=== PATIENT | female | born 1980 | race Caucasian/White ===

== ENCOUNTER 2018-03-16 06:11 | Emergency (ER) | payer MEDICARE, MEDICAID ==
[2018-03-16 06:18] VITALS: BP 132/75
[2018-03-16] MEDS ORDERED: KETOROLAC TROMETHAMINE 60 MG/2 ML SDV IM ONE (07:39)
--- NOTE | 2018-03-16 07:57 | RADIOLOGY REPORT (SQ) ---
EXAM DESCRIPTION: XR SHOULDER 2 OR MORE VIEWS COMPLETED DATE/TME: 03/16/2018 07:38 CLINICAL HISTORY: 38 years, Female, sudden onset left arm pain COMPARISON: None. FINDINGS: 3 views of the left shoulder. No acute fracture or dislocation. Normal osseous mineralization. No acute abnormalities of the left hemithorax. IMPRESSION: No acute fracture or dislocation. 2011 [employer]- All Rights Reserved
--- NOTE | 2018-03-16 08:00 | ER Document Report ---
ED General - General Chief Complaint: Arm Pain Stated Complaint: ARM PAIN Time Seen by Provider: 03/16/18 07:13 Mode of Arrival: Ambulatory Information source: Patient, Friend TRAVEL OUTSIDE OF THE [place] IN LAST 30 DAYS: No - HPI Notes: 38-year-old female presents to the ED with complaints of left shoulder pain that started approximately x 1 day ago. Denies any trauma. Denies any numbness or tingling down bilateral upper extremities. Pain is 7 out of 10, worse with movement. Tried [id number] ibuprofen without relief. Worse with movement, better when she keeps them elevated. Denies any prior history of shoulder pain but does have a history of cervical disc issues. Is not being followed by a doctor at this time. Denies , last menstrual period was 8 days ago, has not been sexually active since then. Denies fevers, chills, chest pain,palpitations, shortness of breath, dyspnea, nausea, vomiting, diarrhea, abdominal pain, hematuria,blurred vision, double vision, loss of vision, speech changes, LH, dizziness, syncope, headaches, wheezing, ST, URI, neck pain, weakness, bowel or bladder dysfunction, saddle anesthesia, numbness or tingling in bilateral upper or lower extremities equally, muscle paralysis, weakness in bilateral upper or lower extremities equally or rash. Denies IV drug use. - Related Data Allergies/Adverse Reactions: morphine Allergy (Verified 03/16/18 06:15) Past Medical History - General Information source: Patient - Social History Smoking Status: Current Every Day Smoker Chew tobacco use (# tins/day): No Frequency of alcohol use: Rare Drug Abuse: None Family History: Reviewed & Not Pertinent Patient has suicidal ideation: No Patient has homicidal ideation: No Renal/ Medical History: Denies: Hx Peritoneal Dialysis Review of Systems - Review of Systems Constitutional: No symptoms reported EENT: No symptoms reported Cardiovascular: No symptoms reported Respiratory: No symptoms reported Gastrointestinal: No symptoms reported Genitourinary: No symptoms reported Female Genitourinary: No symptoms reported Musculoskeletal: See HPI Skin: No symptoms reported Hematologic/Lymphatic: No symptoms reported Neurological/Psychological: No symptoms reported Physical Exam - Vital signs Vitals: Temp Pulse Resp BP Pulse Ox 97.6 F 73 18 132/75 H 96 03/16/18 06:17 03/16/18 06:17 03/16/18 06:17 06/13/18 06:17 03/16/18 06:17 - Notes Notes: PHYSICAL EXAMINATION: GENERAL: Well-appearing, well-nourished and in no acute distress. HEAD: Atraumatic, normocephalic. EYES: Pupils equal round and reactive to light, extraocular movements intact, conjunctiva are normal. ENT: Nares patent, oropharynx clear without exudates. Moist mucous membranes. NECK: Normal range of motion, supple without lymphadenopathy LUNGS: Breath sounds clear to auscultation bilaterally and equal. No wheezes rales or rhonchi. HEART: Regular rate and rhythm without murmurs ABDOMEN: Soft, nontender, nondistended abdomen. No guarding, no rebound. No masses appreciated. Female : deferred Musculoskeletal: Normal range of motion, no pitting or edema. No cyanosis. Left shoulder pain with abduction and flexion at 80 degrees. no pain with supination, pronation, extension of left arm. 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 APROM in shoulder. DTR +2 in BUE equally. Noted crepitus with APROM in elbow. negative drop arm, neer sign, lopez test bilaterally. slightly positive impingement sign all on Left. No vascular compromise. Neck with full APROM, no cervical spinal tenderness. No tenderness over clavicles or step off noted bilaterally. Strength 5 out of 5 in bilateral upper extremities equally. NEUROLOGICAL: Cranial nerves grossly intact. Normal speech, normal gait. Normal sensory, motor exams PSYCH: Normal mood, normal affect. SKIN: Warm, Dry, normal turgor, no rashes or lesions noted. Course - Re-evaluation Re-evalutation: 03/16/18 08:37 Afebrile, vitals stable and in mild distress from shoulder pain. Patient holds disc bulging is being managed. 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 X-ray of left arm without any acute fracture dislocation. Advised patient to take muscle relaxer , do not drive, drink alcohol or operate heavy machinery while taking medication. Placed in sling. Follow-up with operating room specialist within 1 week. Apply heat 20 minutes on 20 minutes off several times a day. After performing a Medical Screening Examination, I estimate there is LOW risk for OPEN FRACTURE, COMPARTMENT SYNDROME, TENDON RUPTURE, ACUTE NEUROVASCULAR INJURY , or RETAINED FOREIGN BODY, thus I consider the discharge disposition reasonable. Also, there is no evidence or peritonitis, sepsis, or toxicity. I have reevaluated this patient multiple times and no significant life threatening changes are noted. The patient and I have discussed the diagnosis and risks, and we agree with discharging home with close follow-up with the understanding that symptoms and presentations can change. We also discussed returning to the Emergency Department immediately if new or worsening symptoms occur. We have discussed the symptoms which are most concerning (e.g., changing or worsening pain, fever, numbness, weakness, cool or painful digits) that necessitate immediate return. - Vital Signs Vital signs: Temp Pulse Resp BP Pulse Ox 97.6 F 73 18 132/75 H 96 03/16/18 06:17 03/16/18 06:17 03/16/18 06:17 03/16/18 06:17 03/16/18 06:17 Discharge - Discharge Clinical Impression: Left shoulder pain Qualifiers: Chronicity: acute Qualified Code(s): M25.512 - Pain in left shoulder Rotator cuff tendinitis Qualifiers: Laterality: left Qualified Code(s): M75.82 - Other shoulder lesions, left shoulder Condition: Stable Disposition: HOME, SELF-CARE Instructions: Exercise Program for the Shoulder ([facility]), Shoulder Injury ([facility]), Sling to be Used ([facility]), Temporary Sling ([facility]) Additional Instructions: Shoulder Injury You have injured your shoulder. This usually results from stretching or tearing of the tendons during trauma. Time and protection are required in order to heal properly. Many injuries are quite disabling, and should be taken seriously. Initial treatment includes cold packs and a sling to rest the shoulder. The physician has assessed the seriousness of your injury, and has outlined a treatment plan. Understand that this treatment may change, depending on how you progress. If a re-examination was recommended, it is important that you follow up as instructed. Some shoulder injuries (such as partial tear of the rotator cuff) are only suspected after you've failed to improve. Call us if there's severe pain, numbness, or loss of function. Follow-up with operating room specialist within 3 days, use sling as directed. Do not drive, drink alcohol or operate heavy machinery while taking Flexeril as it can cause sedation. Take all medication with food, do not take any other NSAIDs such as Aleve, ibuprofen or Motrin while taking naproxen. Apply heat 20 minutes on 20 minutes off several times a day. Take arm out of sling a few times a day to prevent contracture. X-ray was negative for any acute fracture or dislocation. You likely a rotator cuff tendinitis Prescriptions: Cyclobenzaprine HCl [Flexeril 10 mg Tablet] 10 mg PO TIDP PRN #9 tab PRN Reason: Naproxen 500 mg PO BID PRN #20 tablet PRN Reason: Referrals: KATHERIN ZULETA MD [ACTIVE STAFF] - Follow up in 3-5 days LULI MALCOLM MD [ACTIVE STAFF] - Follow up in 3-5 days
== END 2018-03-16 08:37 | disposition home or self-care (01) ==
LOC: ER 06:11
DX: M75.92 Shoulder lesion, unspecified, left shoulder (principal); M25.512 Pain in left shoulder; F17.200 Nicotine dependence, unspecified, uncomplicated; Z88.5 Allergy status to narcotic agent
CPT/HCPCS: 99283; 96372; 73030; J1885

== ENCOUNTER 2018-07-08 19:27 | Emergency (ER) | payer MEDICARE, MEDICAID ==
[2018-07-08] MEDS ORDERED: BUPIVACAINE HCL 0.5 % INJ/PF 30 ML SDV INJ ONE (21:05)
[2018-07-08] MEDS ORDERED: LIDOCAINE 1% INJ (10 MG/ML) 10 ML MDV INJ ONE (21:09)
[2018-07-08] MEDS ORDERED: HYDROCODONE/ACETAMINOPHEN 5-325 MG (6 TAB/ER DISP) PO PRN (21:10)
--- NOTE | 2018-07-08 21:16 | ER Document Report ---
ED Oral Problem - General Chief Complaint: Toothache Stated Complaint: TOOTHACHE Time Seen by Provider: 07/08/18 21:00 Information source: Patient Notes: Patient is a 38-year-old female comes emergency room with a acute exacerbation of her chronic dental problem. She has a current abscess on the left lower incisor. Part of the tooth is broken off and it is partially decayed as well. Patient states that she has Medicaid Medicare but she cannot find a dentist. States this is been going on for several months but it comes and goes but this time it is not gone. She is on tears as we did do her physical exam. Of offer patient a dental block and she has accepted. TRAVEL OUTSIDE OF THE [place] IN LAST 30 DAYS: No - HPI Patient complains to provider of: Swelling of jaw, Toothache Onset: Other - Chronic for the several months worse the past week worse the past 2 days. Onset: Gradual Quality of pain: Sharp, Throbbing Severity: Moderate Pain Level: 3 Context: Fractured tooth Swollen jaw/face: Mild Associated symptoms: Chills, Facial pain, Jaw pain, Toothache, White patches in mouth Worsened by: Cold Relieved by: Nothing Similar symptoms previously: Yes Recently seen / treated by doctor/dentist: No - Related Data Allergies/Adverse Reactions: morphine Allergy (Verified 03/16/18 06:15) Past Medical History - General Information source: Patient - Social History Smoking Status: Current Every Day Smoker Cigarette use (# per day): Yes - Half a pack a day Chew tobacco use (# tins/day): No Smoking Education Provided: Yes Frequency of alcohol use: Occasional Lives with: Family Family History: Reviewed & Not Pertinent Patient has suicidal ideation: No Patient has homicidal ideation: No Renal/ Medical History: Denies: Hx Peritoneal Dialysis Past Surgical History: Reports: Hx Hysterectomy Review of Systems - Review of Systems Constitutional: No symptoms reported EENT: Dental problem Cardiovascular: No symptoms reported Respiratory: No symptoms reported Gastrointestinal: No symptoms reported Genitourinary: No symptoms reported Female Genitourinary: No symptoms reported Musculoskeletal: No symptoms reported Skin: No symptoms reported Hematologic/Lymphatic: No symptoms reported Neurological/Psychological: No symptoms reported -: Yes All other systems reviewed and negative Physical Exam - Vital signs Vitals: Temp Pulse Resp BP Pulse Ox 98.9 F 67 18 124/75 98 07/08/18 19:59 07/08/18 19:59 07/08/18 19:59 07/08/18 19:59 07/08/18 19:59 Interpretation: Normal - Notes Notes: Patient is a well-nourished well-developed 38-year-old female no apparent distress but does appear somewhat uncomfortable. - General General appearance: Alert - HEENT Head: Normocephalic, Atraumatic Eyes: Normal Sinus: Normal Nasal: Normal Mouth/Lips: Dental fracture, Other - Examination patient's oral cavity shows that she has extensive dental decay throughout her mouth. The left lower incisor where patient's pain is at is the farthest back tooth on that left lower side it has been broken off and is decaying in the middle. The tooth is about half the size is normal would be expected. The middle pulp area is black and color. There is some pus that appears to be coming from the root area. The gum around it is swollen there is gingivitis throughout the mouth. The gum tooth line also shows moderate amount of erythema questionable area of discharge on the backside of that tooth. Mucous membranes: Moist Teeth diagram: 1 - Dental pain with a fractured tooth here. Neck: Normal, Supple. No: Anterior cervical chain, Posterior cervical chain, Carotid bruit, Kernig's, Lymphadenopathy, Meningismus, Neck mass, Shotty nodes, Subcutaneous emphysema, Thyroid nodule, Thyromegally - Respiratory Respiratory status: No respiratory distress Chest status: Nontender Breath sounds: Normal. No: Rales, Rhonchi, Stridor, Wheezing Chest palpation: Normal - Cardiovascular Rhythm: Regular Heart sounds: Normal auscultation Murmur: No - Neurological Neuro grossly intact: Yes Cognition: Normal Orientation: AAOx4, Disoriented to events [place] Coma Scale Eye Opening: Spontaneous Shiva Coma Scale Verbal: Oriented Shiva Coma Scale Motor: Obeys Commands Shiva Coma Scale Total: 15 Speech: Normal Course - Re-evaluation Re-evalutation: 07/09/18 01:51 I offered patient a dental block and she accepted. In my reasoning patient's request a dental block or except one then they are hurting bad enough that they need some pain medication. I will do a procedure note for the dental block in this section but . So I will give patient arch 6 pack of hydrocodone here from the office. And I will put her on antibiotics and inform her that she has to follow-up with dentist as soon as possible. Dental block procedure. I used 1 mL of 0.5% Marcaine with 1 mL of 1% lidocaine both without epi. I used a 1 inch 25-gauge needle with a 3 mL syringe. I approached the left lower incisor tooth approximately quarter inch towards the center of the mouth ahead of that tooth. I injected at the gum tooth line. I pushed slowly and as I was pushing you could see patient's pain fading away. Once I got the 2 mL's into the local area and withdrew the needle patient was pain-free. Patient had no complications with this dental block. She was thrilled that the pain is gone away. She will do her best to follow-up with a dentist. - Vital Signs Vital signs: Temp Pulse Resp BP Pulse Ox 97.6 F 60 20 124/73 96 07/08/18 21:37 07/08/18 21:37 07/08/18 21:37 07/08/18 21:37 07/08/18 21:37 Discharge - Discharge Clinical Impression: Dental abscess Condition: Stable Disposition: HOME, SELF-CARE Instructions: [facility]cess ([facility]), [facility], Clindamycin ([facility]), Oral Narcotic Medication ([facility]), Toothache ([facility]) Additional Instructions: Home and rest. Medications prescribed. As of informed you cannot fix this problem we are not a dentist. It is up to you to find a dentist as soon as possible. The antibiotic should help alleviate the discomfort and pain as well. Pain medication and given you is always will be allowed to give out of this ER. Should you have any concerns or problems if the swelling gets worse when he spike a fever does not go away return to ER for recheck. Prescriptions: Clindamycin HCl 300 mg PO QID #40 capsule Fluconazole [Diflucan] 150 mg PO ONCE PRN #1 tablet PRN Reason:
[2018-07-08 22:05] VITALS: BP 124/73
== END 2018-07-08 22:00 | disposition home or self-care (01) ==
LOC: ER 19:27
DX: K04.7 Periapical abscess without sinus (principal); K02.9 Dental caries, unspecified; K05.10 Chronic gingivitis, plaque induced; F17.210 Nicotine dependence, cigarettes, uncomplicated; Z88.5 Allergy status to narcotic agent
CPT/HCPCS: 99282; 64400; J3490; A9270

== ENCOUNTER 2018-08-23 12:01 | Emergency (ER) | payer MEDICARE, MEDICAID ==
[2018-08-23 12:10] VITALS: BP 113/69
[2018-08-23] MEDS ORDERED: BUPIVACAINE HCL 0.5 % INJ/PF 30 ML SDV INJ ONE (12:29)
[2018-08-23] MEDS ORDERED: LIDOCAINE 2%/EPINEPHRINE INJ 20 ML VIAL INJ ONE (12:30)
--- NOTE | 2018-08-23 12:30 | ER Document Report ---
ED General - General Chief Complaint: Toothache Stated Complaint: TOOTH PAIN Time Seen by Provider: 08/23/18 12:25 Notes: Patient is a 38-year-old female that presents to the emergency department for chief complaint of left lower dental pain. Patient reports that she is been having 4 days of pain in the same she is she has had issues with in the past, recently had another piece break off of it. It is her left lower canine, pain she is rates currently as a 9 out of 10, described as a constant aching and throbbing sensation she is not been wanting to eat because of the pain associated. She has been taking Motrin at home without much improvement. She was seen in July for similar symptoms, was prescribed clindamycin at that time, states that her symptoms resolved for some time, but eventually came back. She has not followed up with a dentist since that time, states that she is tried to call, but is not sure what is covered with her insurance. She denies having any fevers, chills, night sweats, chest pain, shortness of breath , nausea or vomiting. Past Medical History: Legally blind Past Surgical History: Wrist surgery, hysterectomy Social History: Admits to smoking cigarettes daily, denies alcohol or illicit drug use Family History: Reviewed and noncontributory for presenting illness Allergies: Reviewed, see documented allergy list. REVIEW OF SYSTEMS: Other than noted above, the 12 point review of systems was reviewed with the patient and were negative, all pertinent findings are included in the HPI. PHYSICAL EXAMINATION: Vital signs reviewed, nursing noted reviewed. GENERAL: Well-appearing, well-nourished and in no acute distress. HEAD: Atraumatic, normocephalic. EYES: Eyes appear normal, extraocular movements intact, sclera anicteric, conjunctiva are normal. ENT: nares patent, oropharynx clear without exudates. Moist mucous membranes. Patient has multiple dental fractures and dental caries noted throughout her mouth, she does have more erythema and redness surrounding tooth #21, without fluctuance, or abscess. There is tenderness to palpation with a tongue blade. NECK: Normal range of motion, supple without lymphadenopathy, no tenderness or swelling under the submental aspect of the patient's jaw. LUNGS: Breath sounds clear to auscultation bilaterally and equal. No wheezes rales or rhonchi. HEART: Regular rate and rhythm without murmurs EXTREMITIES: Nontender, good range of motion, no pitting or edema. NEUROLOGICAL: No focal neurological deficits. Moves all extremities spontaneously Motor and sensory grossly intact on exam. PSYCH: Normal mood, normal affect. SKIN: Warm, Dry, normal turgor, no rashes or lesions noted on exposed skin TRAVEL OUTSIDE OF THE [place] IN LAST 30 DAYS: No - Related Data Allergies/Adverse Reactions: morphine Allergy (Verified 08/23/18 12:01) Past Medical History - Social History Smoking Status: Current Every Day Smoker Family History: Reviewed & Not Pertinent Patient has suicidal ideation: No Patient has homicidal ideation: No Renal/ Medical History: Denies: Hx Peritoneal Dialysis Past Surgical History: Reports: Hx Hysterectomy, Hx Orthopedic Surgery - R wrist Physical Exam - Vital signs Vitals: Temp Pulse Resp BP Pulse Ox 98.1 F 70 18 113/69 96 08/23/18 12:09 08/23/18 12:09 08/23/18 12:09 08/23/18 12:09 08/23/18 12:09 Course - Re-evaluation Re-evalutation: Presentation is most consistent with likely an infected tooth. Airway is patent. Vitals within normal limits. Patient is able swallow without any difficulty. There is no significant facial swelling. No evidence of Patel angina, apical abscess, or airway obstruction. Patient will be started on antibiotics. I've instructed to follow-up with dentistry as earliest ability for definitive management. At this time will discharge with return precautions and follow-up recommendations. Verbal discharge instructions given a the bedside and opportunity for questions given. Medication warnings reviewed. Patient is in agreement with this plan and has verbalized understanding of return precautions and the need for primary care follow-up in the next 24-72 hours. Procedure: Left inferior alveolar nerve block Risks and benefits of the procedure discussed with the patient including side effects of medications, patient was agreeable to plan of care, provided verbal consent. Using a mixture of 0.5% bupivacaine, and 2% lidocaine with epinephrine, a 25- gauge needle was introduced into the trigone space, and slowly injected 7 mL's of anesthetic, patient tolerated well, with good anesthesia. Patient given precautions when chewing, to avoid tongue laceration and injury. - Vital Signs Vital signs: Temp Pulse Resp BP Pulse Ox 98.1 F 70 18 113/69 96 08/23/18 12:08/23/18 12:08/23/18 12:08/23/18 12:08/23/18 12:09 Discharge - Discharge Clinical Impression: Dental infection Condition: Stable Disposition: HOME, SELF-CARE Instructions: Dental Infection or Abscess ([facility]) Additional Instructions: Please follow-up with a dentist, call the [facility], to set up an appointment. Take the antibiotics as prescribed. Take the naproxen as prescribed as well, do not take any other anti-inflammatories such as Motrin , ibuprofen, Aleve with this medication has been prescribed. Prescriptions: Amoxicillin Trihydrate [Amoxil 875 mg Tablet] 1 tab PO BID #14 tablet Naproxen 500 mg PO BID PRN #30 tablet.dr FUNES Reason: dental pain Forms: Parent Work Note Referrals: [facility] [Provider Group] - Follow up tomorrow
== END 2018-08-23 12:42 | disposition home or self-care (01) ==
LOC: ER 12:01
DX: K04.7 Periapical abscess without sinus (principal); F17.200 Nicotine dependence, unspecified, uncomplicated; F17.210 Nicotine dependence, cigarettes, uncomplicated; Z90.710 Acquired absence of both cervix and uterus
CPT/HCPCS: 99282; 64400; J3490 ×2

== ENCOUNTER 2019-03-17 08:50 | Emergency (ER) | payer MEDICARE, MEDICAID ==
[2019-03-17 10:02] VITALS: BP 104/67
== END 2019-03-17 11:08 | disposition left against medical advice (07) ==
LOC: ER 08:50
DX: Z53.21 Procedure and treatment not carried out due to patient leaving prior to being seen by health care provider (principal)

== ENCOUNTER 2019-04-20 10:16 | Emergency (ER) | payer MEDICARE, MEDICAID ==
[2019-04-20 10:23] VITALS: BP 128/76
--- NOTE | 2019-04-20 11:02 | ER Document Report ---
HPI - HPI Time Seen by Provider: 04/20/19 10:37 Pain Level: 5 Notes: Patient is a 39-year-old female with no significant past medical history who presents complaining of right foot pain near her first MTP joint that is been ongoing for the past 6 months without obvious injury. Patient states that she did stub her toe last month that did not help with her issues. She has not tried any medicines for it. She has not seen anybody for this as well. No other concerns or complaints. She has not noticed any redness or significant swelling/bruising. Denies any headache, fever, URI, sore throat, chest pain, palpitations, syncope, cough, shortness of breath, wheeze, dyspnea, abdominal pain, nausea/vomiting/diarrhea, urinary retention, dysuria, hematuria, loss of control of bowel or bladder, numbness/tingling, muscle paralysis/weakness, or rash. - ROS Systems Reviewed and Negative: Yes All other systems reviewed and negative - CONSTITUTIONAL Constitutional: DENIES: Fever, Chills - NEURO Neurology: REPORTS: Headache - REPRODUCTIVE Reproductive: DENIES: : - MUSCULOSKELETAL Musculoskeletal: REPORTS: Extremity pain - R Toe Past Medical History - Social History Smoking Status: Current Every Day Smoker Family History: Reviewed & Not Pertinent Patient has suicidal ideation: No Patient has homicidal ideation: No Renal/ Medical History: Denies: Hx Peritoneal Dialysis Past Surgical History: Reports: Hx Hysterectomy, Hx Orthopedic Surgery - R wrist Vertical Provider Document - CONSTITUTIONAL Agree With Documented VS: Yes Notes: PHYSICAL EXAMINATION: GENERAL: Well-appearing, well-nourished and in no acute distress. LUNGS: Breath sounds clear to auscultation bilaterally and equal. No wheezes rales or rhonchi. HEART: Regular rate and rhythm without murmurs, rubs, gallops. Musculoskeletal: Lt/Rt foot/ankle: No ecchymosis swelling erythema warmth or deformity. LROM to passive/active flexion at 1st MTP. Strength 5+/5. N/V intact distal. + tenderness to the toe near 1st MTP. No bony tenderness of the ankle. Achilles intact. Lis Franc maneuver neg. Anterior drawer neg. Extremities: No cyanosis, clubbing, or edema b/l. Peripheral pulses 2+. Capillary refill less than 3 seconds. NEUROLOGICAL: Normal speech, normal gait. Normal sensory, motor exams PSYCH: Normal mood, normal affect. SKIN: Warm, Dry, normal turgor, no rashes or lesions noted. - INFECTION CONTROL TRAVEL OUTSIDE OF THE [place] IN LAST 30 DAYS: No Course - Re-evaluation Re-evalutation: 04/20/19 12:03 Patient is an afebrile, well-hydrated, 39-year-old female who presents to the ED with Rt toe pain which I suspect to be arthritic. Vitals are acceptable without any significant tachycardia, tachypnea, or hypoxia. PE is otherwise unremarkable for any neurovascular compromise, obvious tendon/ligament rupture, obvious fracture/dislocation, septic joint. X-ray was unremarkable for any acute pathology. Patient is nontoxic-appearing. Patient is able to ambulate and weight-bear. No other labs or imaging warranted at this time based on H&P. Conservative measures otherwise for symptoms. Recheck with your PCM in 3-5 days. Consider consult podiatry. Return to the ED with any worsening/concerning symptoms otherwise as reviewed in discharge. Patient is in agreement. - Vital Signs Vital signs: Temp Pulse Resp BP Pulse Ox 98.1 F 68 16 128/76 H 96 04/20/19 10:22 04/20/19 10:22 04/20/19 10:22 04/20/19 10:22 04/20/19 10:22 Discharge - Discharge Clinical Impression: Toe pain, right Condition: Stable Disposition: HOME, SELF-CARE Additional Instructions: Rest, Ice, Compression, Elevation Tylenol/ibuprofen as needed Light stretches daily Strength exercises as able Moist heat and massage may help F/u with your PCP in 3-5 days for a recheck Consider consult(s) with podiatry for ongoing/worsening symptoms Return to the ED with any worsening symptoms and/or development of fever, headache, chest pain, palpitations, syncope, shortness of breath, trouble breathing, abdominal pain, n/v/d, muscle weakness/paralysis, numbness/tingling, swelling, redness, or other worsening symptoms that are concerning to you. Forms: Elevated Blood Pressure, Smoking Cessation Education, Return to Work Referrals: OSMAN WILBURN DPM [ACTIVE STAFF] - Follow up as needed
--- NOTE | 2019-04-20 11:29 | RADIOLOGY REPORT (SQ) ---
EXAM DESCRIPTION: FOOT RIGHT COMPLETE COMPLETED DATE/TIME: 04/20/2019 11:18 am REASON FOR STUDY: pain near 1st MTP COMPARISON: None. NUMBER OF VIEWS: Three views. TECHNIQUE: AP, lateral and oblique radiographic images acquired of the right foot. LIMITATIONS: None. FINDINGS: MINERALIZATION: Normal. BONES: No acute fracture or dislocation. No worrisome bone lesions. JOINTS: No effusions. Mild degenerative narrowing 1st metatarsophalangeal joint. SOFT TISSUES: No soft tissue swelling. No foreign body. OTHER: No other significant finding. IMPRESSION: Mild degenerative change 1st scratch at mild degenerative narrowing 1st metatarsophalang eal joint. Study is otherwise normal. No significant pathology to explain the patient's clinical sy mptoms. TECHNICAL DOCUMENTATION: JOB ID: [id number] [employer]- All Rights Reserved Reading location - IP/workstation name: [email or web address]
== END 2019-04-20 12:24 | disposition home or self-care (01) ==
LOC: ER 10:16
DX: M79.674 Pain in right toe(s) (principal); M79.671 Pain in right foot; F17.200 Nicotine dependence, unspecified, uncomplicated
CPT/HCPCS: 99283

== ENCOUNTER 2019-04-28 14:10 | Emergency (ER) | payer MEDICARE, MEDICAID ==
[2019-04-28 14:17] VITALS: BP 151/74
[2019-04-28] MEDS ORDERED: IBUPROFEN 800 MG TABLET PO ONE (14:35)
[2019-04-28] MEDS ORDERED: PENICILLIN V POTASSIUM 500 MG TABLET PO ONE (14:35)
[2019-04-28] MEDS ORDERED: LIDOCAINE 2% VISCOUS SOLN 20 ML UDCUP PO ONE (14:35)
--- NOTE | 2019-04-28 14:40 | ER Document Report ---
ED Oral Problem - General Chief Complaint: Toothache Stated Complaint: TOOTHACHE Time Seen by Provider: 04/28/19 14:28 Primary Care Provider: [facility] [Provider Group] - Follow up as needed [facility] [Provider Group] - Follow up as needed Mode of Arrival: Ambulatory Information source: Patient Notes: 39-year-old female presented to ED for dental pain. She has a very large cavity to the bottom left jaw #1718 and 19 and 20 are decayed with mild swelling around the teeth. Patient is alert oriented respirations regular and unlabored speaking in full sentences walks with even steady gait. TRAVEL OUTSIDE OF THE [place] IN LAST 30 DAYS: No - HPI Patient complains to provider of: Swelling of jaw, Toothache Onset: Other - Chronic worse for the last couple weeks Onset: Gradual Quality of pain: Sharp, Throbbing Severity: Moderate Pain Level: 4 Swollen jaw/face: Mild - Jaw no swelling to the face Associated symptoms: Jaw pain, Toothache Worsened by: Cold Relieved by: Nothing Similar symptoms previously: Yes Recently seen / treated by doctor/dentist: No - Related Data Allergies/Adverse Reactions: morphine Allergy (Verified 04/28/19 14:14) Past Medical History - General Information source: Patient - Social History Smoking Status: Current Every Day Smoker Cigarette use (# per day): Yes - Half pack a day Chew tobacco use (# tins/day): No Smoking Education Provided: Yes - 4 minutes Frequency of alcohol use: Social Drug Abuse: None Occupation: Disabled due to blind Lives with: Friend Family History: Reviewed & Not Pertinent Patient has suicidal ideation: No Patient has homicidal ideation: No - Past Medical History Cardiac Medical History: Reports: Hx Hypercholesterolemia, Hx Hypertension Pulmonary Medical History: Reports: None EENT Medical History: Reports: Eyes - RP and cataracts Neurological Medical History: Reports: None Endocrine Medical History: Reports: None Renal/ Medical History: Reports: None Malignancy Medical History: Reports: None GI Medical History: Reports: None Musculoskeletal Medical History: Reports Hx Arthritis, Reports Hx Fibromyalgia, Reports Hx Musculoskeletal Trauma Skin Medical History: Reports None Psychiatric Medical History: Reports: None Traumatic Medical History: Reports: Hx Fractures - Wrist Infectious Medical History: Reports: None Past Surgical History: Reports: Hx Section, Hx Hysterectomy, Hx Orthopedic Surgery - R wrist, Other - Cataracts Review of Systems - Review of Systems Constitutional: No symptoms reported EENT: Mouth pain, Mouth swelling, Dental problem Cardiovascular: No symptoms reported Respiratory: No symptoms reported Gastrointestinal: No symptoms reported Genitourinary: No symptoms reported Female Genitourinary: No symptoms reported Musculoskeletal: No symptoms reported Skin: No symptoms reported Hematologic/Lymphatic: No symptoms reported Neurological/Psychological: No symptoms reported -: Yes All other systems reviewed and negative Physical Exam - Vital signs Vitals: Temp Pulse Resp BP Pulse Ox 98.2 F 57 L 14 151/74 H 96 04/28/19 14:16 04/28/19 14:16 04/28/19 14:16 04/28/19 14:16 04/28/19 14:16 Interpretation: Normal - Notes Notes: She is legally blind - General General appearance: Appears well, Alert - HEENT Head: Normocephalic, Atraumatic Eyes: Normal Pupils: PERRL Visual acuity- Right eye: States leg Ears: Normal External canal: Normal Tympanic membrane: Normal Sinus: Normal Nasal: Normal Mouth/Lips: Caries Mucous membranes: Normal Teeth diagram: 1 - Teeth are very decayed mild redness and swelling around the teeth - Respiratory Respiratory status: No respiratory distress Chest status: Nontender Breath sounds: Normal Chest palpation: Normal - Cardiovascular Rhythm: Regular Heart sounds: Normal auscultation Murmur: No - Abdominal Inspection: Normal Distension: No distension Bowel sounds: Normal Tenderness: Nontender Organomegaly: No organomegaly - Back Back: Normal, Nontender - Extremities General upper extremity: Normal inspection, Nontender, Normal color, Normal ROM, Normal temperature General lower extremity: Normal inspection, Nontender, Normal color, Normal ROM, Normal temperature, Normal weight bearing. No: Deirdre's sign - Neurological Neuro grossly intact: Yes Cognition: Normal Orientation: AAOx4 Shiva Coma Scale Eye Opening: Spontaneous Shiva Coma Scale Verbal: Oriented Union Coma Scale Motor: Obeys Commands Shiva Coma Scale Total: 15 Speech: Normal Motor strength normal: LUE, RUE, LLE, RLE Sensory: Normal - Psychological Associated symptoms: Normal affect, Normal mood - Skin Skin Temperature: Warm Skin Moisture: Dry Skin Color: Normal Course - Re-evaluation Re-evalutation: 04/28/19 14:43 Presentation is most consistent with likely an infected tooth. Airway is patent. Vitals within normal limits. Patient is able swallow without any difficulty. There is no significant facial swelling. No evidence of Patel angina, apical abscess, or airway obstruction. Patient will be started on antibiotics. I've instructed to follow-up with dentistry as earliest ability for definitive management. At this time will discharge with return precautions and follow-up recommendations. Verbal discharge instructions given a the bedside and opportunity for questions given. Medication warnings reviewed. Patient is in agreement with this plan and has verbalized understanding of return precautions and the need for primary care follow-up in the next 24-72 hours. - Vital Signs Vital signs: Temp Pulse Resp BP Pulse Ox 98.2 F 57 L 14 151/74 H 96 04/28/19 14:16 04/28/19 14:16 04/28/19 14:16 04/28/19 14:16 04/28/19 14:16 Discharge - Discharge Clinical Impression: Pain due to dental caries Condition: Stable Disposition: HOME, SELF-CARE Instructions: Family Physicians / Practices Additional Instructions: TOOTHACHE: Your pain is due to dental decay. The tooth must be repaired in order for you to feel better. You will, therefore, be referred to a dentist. We do not have dentists on the staff at [facility]. Severe swelling or drainage around a tooth usually means a dental abscess. This also requires evaluation and treatment by the dentist, but antibiotics may be prescribed while awaiting dental treatment. You should be rechecked immediately if you develop major swelling of the face, increasing pain, a lump in the jaw or gums, headache, difficulty swallowing, or fever. PENICILLIN V K: You have been given a prescription for Penicillin VK. Your physician has determined that this is the best antibiotic for your condition. Pen VK can be taken with meals, however more of the antibiotic gets into the bloodstream if it's taken on an empty stomach. Penicillin usually has no side effects. However, allergy to penicillins is common. If you have had an allergic reaction to any drug of the penicillin family, you should never take any other penicillin. Notify your doctor at once if you develop hives, itching, swelling, faintness, or shortness of breath. Ibuprofen Ibuprofen is an excellent, safe drug for pain control. In addition, it has potent antiinflammatory effects which are beneficial, especially in the treatment of injuries, arthritis, or tendonitis. It's best to take ibuprofen with food. Persons with ulcer disease or allergy to aspirin should notify their physician of this before taking ibuprofen. Take the medication exactly as prescribed. Don't take additional doses unless instructed to do so by your doctor. If you develop wheezing, shortness of breath, hives, faintness, stomach pain, vomiting, or dark black stools, return for re-evaluation at once. The viscous lidocaine I have given you in a syringe. You can put a small amount on your finger and it applied to the tooth and gum that is given you problems. This will help to numb the area and decrease the pain. You can do this every 3- 4 hours for your pain. If you do more often than that it can corroded your skin and make it more painful. Do not do more often than every 3-4 hours. If you scored to hold syringe of lidocaine in your mouth all she will do his waist or lidocaine and make your mouth numb. FOLLOW-UP CARE: You have been referred for follow-up care to the dentists listed below. Call the dentists office for an appointment as you were instructed or within the next two days. If you experience worsening or a significant change in your symptoms, notify the physician immediately or return to the Emergency Department at any time for re-evaluation. [facility] [address] [place] [address] [facility] [place] [address] [facility] [address] [facility] [address] [email or web address] [address] [place] [address] Wednesday- 8:00am to 5:00 pm Will see patients from other [facility]. Charges based on income and family size and accepts Medicare, Medicaid, and Insurances Will pull molars [facility] [place] [address] Hours of Operation 8:00 am - 4:30 pm weekdays The following dental offices accept Medicaid: [facility] Dr. Dao Dr. Finley Dr. Hagan Dr. Falcon Jimmy Alexander, Keith, and Chani oral surgery Dr. Durand ([place]) Dr. Enamorado ([place]) [facility] Drs. Valadez and Jesus ([place]) Dr. Green ([place]) [facility] Dr. Bonilla ([place]) Drs. Piña and ([place]) Medicaid Care Line Prescriptions: Ibuprofen [Motrin 600 mg Tablet] 600 mg PO Q8HP PRN #14 tablet PRN Reason: Penicillin V Potassium [Penicillin Vk 500 mg Tablet] 500 mg PO BID #20 tablet Forms: Elevated Blood Pressure, Smoking Cessation Education Referrals: [facility] [Provider Group] - Follow up as needed [facility] [Provider Group] - Follow up as needed
== END 2019-04-28 14:53 | disposition home or self-care (01) ==
LOC: ER 14:10
DX: K02.9 Dental caries, unspecified (principal); K08.89 Other specified disorders of teeth and supporting structures; R68.84 Jaw pain; R22.0 Localized swelling, mass and lump, head; F17.210 Nicotine dependence, cigarettes, uncomplicated; I10 Essential (primary) hypertension
CPT/HCPCS: 99406; 99282; A9270 ×2; J3490

== ENCOUNTER 2019-10-15 06:50 | Emergency (ER) | payer MEDICARE, MEDICAID ==
[2019-10-15 06:58] VITALS: BP 156/83
--- NOTE | 2019-10-15 08:25 | ER Document Report ---
ED General - General Chief Complaint: Toothache Stated Complaint: TOOTH PAIN Time Seen by Provider: 10/15/19 08:02 Notes: 39-year-old female presents with left lower dental pain that is been worse since 04 October. Patient was seen by dentist in September and was placed on penicillin and completed the last dose of the antibiotic on the first. Patient states for a few days after she is feeling better and then her lower left lip and gums star gerald to swell again. Patient states she is scheduled for several extractions on the of this month. Patient denies any fever. TRAVEL OUTSIDE OF THE [place] IN LAST 30 DAYS: No - Related Data Allergies/Adverse Reactions: morphine Allergy (Verified 10/15/19 07:13) Past Medical History - Social History Smoking Status: Current Every Day Smoker Chew tobacco use (# tins/day): No Frequency of alcohol use: Occasional Drug Abuse: None Family History: Reviewed & Not Pertinent Patient has suicidal ideation: No Patient has homicidal ideation: No - Past Medical History Cardiac Medical History: Reports: Hx Hypercholesterolemia, Hx Hypertension Renal/ Medical History: Denies: Hx Peritoneal Dialysis Musculoskeletal Medical History: Reports Hx Arthritis, Reports Hx Fibromyalgia, Reports Hx Musculoskeletal Trauma Traumatic Medical History: Reports: Hx Fractures - Wrist Past Surgical History: Reports: Hx Section, Hx Hysterectomy, Hx Orthopedic Surgery - R wrist, Other - Cataracts Review of Systems - Review of Systems Notes: Constitutional: Negative for fever. HENT: Positive for dental pain. Negative for sore throat. Eyes: Negative for visual changes. Cardiovascular: Negative for chest pain. Respiratory: Negative for shortness of breath. Gastrointestinal: Negative for abdominal pain, vomiting or diarrhea. Genitourinary: Negative for dysuria. Musculoskeletal: Negative for back pain. Skin: Negative for rash. Neurological: Negative for headaches, weakness or numbness. 10 point ROS negative except as marked above and in HPI. Physical Exam - Vital signs Vitals: Temp Pulse Resp BP Pulse Ox 97.9 F 70 20 156/83 H 96 10/15/19 06:57 10/15/19 06:57 10/15/19 06:57 10/15/19 06:57 10/15/19 06:57 - Notes Notes: GENERAL: Well-appearing, well-nourished and in no acute distress. HEAD: Atraumatic, normocephalic. EYES: Pupils equal round and reactive to light, extraocular movements intact, sclera anicteric, conjunctiva are normal. ENT: Gum swelling to #20 and #21, no obvious abscess. Oropharynx clear without exudates. Moist mucous membranes. NECK: Normal range of motion, supple without lymphadenopathy or JVD. EXTREMITIES: Normal range of motion, no pitting or edema. No clubbing or cyanosis. NEUROLOGICAL: Cranial nerves II through XII grossly intact. Normal speech, normal gait. PSYCH: Normal mood, normal affect. SKIN: Warm, Dry, normal turgor, no rashes or lesions noted. Course - Re-evaluation Re-evalutation: 10/15/19 08:20 39-year-old nontoxic, well-appearing female presents with dental pain. Exam consistent with, swelling with no obvious abscess. Patient is scheduled for extractions at her dentist on 10/24. Patient to be prescribed Augmentin and given follow-up with her dentist/PCP. Patient voices understanding and agrees with plan of care. Return precautions given. - Vital Signs Vital signs: Temp Pulse Resp BP Pulse Ox 97.9 F 70 20 156/83 H 96 10/15/19 06:57 10/15/19 06:57 10/15/19 06:57 10/15/19 06:57 10/15/19 06:57 Discharge - Discharge Clinical Impression: Pain, dental, Swollen gums Condition: Stable Disposition: HOME, SELF-CARE Instructions: Toothache (OM), Oral Narcotic Medication (OM), [facility] Additional Instructions: Please take Augmentin as prescribed and finish all doses even if you feel sawyer r. Please take ibuprofen as prescribed. Please take [place] for breakthrough pain. Do not drink or drive while taking [place] as it may make you drowsy. Follow-up with your dentist as scheduled on the . Follow-up with your primary care doctor or 1 of the clinics listed in 1 week. Return to the ER for any worsening symptoms, including fever, increased gum swelling, abscess, nausea/vomiting, abdominal pain, chest pain, shortness of breath, or any other symptoms that are concerning to you. Prescriptions: Amox Tr/Potassium Clavulanate [Augmentin 875-125 Tablet] 1 tab PO BID 10 Days #20 tablet Ibuprofen [Motrin 800 mg Tablet] 800 mg PO Q8H PRN #30 tab PRN Reason: Referrals: PRAVEEN ROY MD [ACTIVE STAFF] - Follow up in 3-5 days [facility] [Provider Group] - Follow up in 3-5 days
[2019-10-15] MEDS ORDERED: HYDROCODONE/ACETAMINOPHEN 5-325 MG (6 TAB/ER DISP) PO PRN (08:26)
== END 2019-10-15 08:33 | disposition home or self-care (01) ==
LOC: ER 06:50
DX: K08.9 Disorder of teeth and supporting structures, unspecified (principal); R22.9 Localized swelling, mass and lump, unspecified; F17.200 Nicotine dependence, unspecified, uncomplicated; E78.00 Pure hypercholesterolemia, unspecified; I10 Essential (primary) hypertension; Z88.6 Allergy status to analgesic agent; Z90.710 Acquired absence of both cervix and uterus
CPT/HCPCS: 99282; A9270

== ENCOUNTER 2019-10-17 17:22 | Emergency (ER) | payer MEDICARE, MEDICAID ==
[2019-10-17 17:54] VITALS: BP 150/81
--- NOTE | 2019-10-17 18:50 | ER Document Report ---
HPI - HPI Time Seen by Provider: 10/17/19 18:37 Pain Level: 5 Notes: 39-year-old female patient complaining of left lower dental pain. Patient has seen her dentist approximately 2 weeks ago, he is scheduled her to see an oral surgeon for root canal as well as multiple tooth removal. She has been taking Augmentin for approximately 5 days now with no relief. She reports she has been taken Tylenol and ibuprofen without relief. She is in obvious pain in triage. - REPRODUCTIVE LMP: hyst Reproductive: DENIES: : Past Medical History - General Information source: Patient - Social History Smoking Status: Current Every Day Smoker Chew tobacco use (# tins/day): No Frequency of alcohol use: None Drug Abuse: None Family History: Reviewed & Not Pertinent Patient has suicidal ideation: No Patient has homicidal ideation: No - Past Medical History Cardiac Medical History: Reports: Hx Hypercholesterolemia, Hx Hypertension Renal/ Medical History: Denies: Hx Peritoneal Dialysis Musculoskeletal Medical History: Reports Hx Arthritis, Reports Hx Fibromyalgia, Reports Hx Musculoskeletal Trauma Traumatic Medical History: Reports: Hx Fractures - Wrist Past Surgical History: Reports: Hx Section, Hx Hysterectomy, Hx Orthopedic Surgery - R wrist, Other - Cataracts Vertical Provider Document - CONSTITUTIONAL Notes: PHYSICAL EXAMINATION: GENERAL: Well-appearing, well-nourished and in no acute distress. HEAD: Atraumatic, normocephalic. EYES: Pupils equal round extraocular movements intact, conjunctiva are normal. ENT: Nares patent, erythema noted to left lower gumline, no obvious drainable abscess, multiple dental caries noted. No evidence of Patel's angina. NECK: Normal range of motion LUNGS: No respiratory distress Musculoskeletal: Normal range of motion NEUROLOGICAL: Normal speech, normal gait. PSYCH: Normal mood, normal affect. SKIN: Warm, Dry, normal turgor, no rashes or lesions noted. - INFECTION CONTROL TRAVEL OUTSIDE OF THE [place] IN LAST 30 DAYS: No Course - Re-evaluation Re-evalutation: Patient presenting with acute dental pain. Patient has already seen her dentist, she is scheduled to see an oral surgeon in 2 weeks for a root canal. We will prescribe patient short course of pain medication, she will continue to alternate ibuprofen and will also continue taking antibiotics. ED return precautions discussed. Patient verbalized understanding and agreement with plan. - Vital Signs Vital signs: Temp Pulse Resp BP Pulse Ox 98.7 F 66 22 H 150/81 H 96 10/17/19 17:53 10/17/19 17:53 10/17/19 17:53 10/17/19 17:53 10/17/19 17:53 Discharge - Discharge Clinical Impression: Pain, dental Condition: Stable Disposition: HOME, SELF-CARE Additional Instructions: You have been seen for dental pain. It is very important that you keep the appointment with the oral surgeon for definitive care. Please return if you develop fever greater than 101, swelling in your face, vomiting, difficulty breathing or swallowing, or any other symptoms that are concerning to you. For pain you should take ibuprofen 800 mg every 8 hours as needed. Prescriptions: Hydrocodone Bit/Acetaminophen [Hydrocodon-Acetaminophen 5-325] 1 each PO Q6H #15 tablet
[2019-10-17] MEDS ORDERED: OXYCODONE-ACETAMINOPHEN 5-325 MG TABLET PO ONE (18:56)
== END 2019-10-17 18:54 | disposition home or self-care (01) ==
LOC: ER 17:22
DX: K08.89 Other specified disorders of teeth and supporting structures (principal); F17.200 Nicotine dependence, unspecified, uncomplicated; I10 Essential (primary) hypertension
CPT/HCPCS: 99282; A9270

== ENCOUNTER 2019-12-09 09:14 | Emergency (ER) | payer MEDICARE, MEDICAID ==
--- NOTE | 2019-12-09 09:31 | ER Document Report ---
ED Hip Pain/Injury - General Chief Complaint: Hip Pain Stated Complaint: FALL/RIGHT HIP PAIN Time Seen by Provider: 12/09/19 09:25 Mode of Arrival: Ambulatory Information source: Patient Notes: 39-year-old female presents to ED for complaint of pain to the right hip for the last month. She has a history of chronic back pain and hip pain but she fell about a month ago and the pain has gradually gotten worse to the right hip since this fall. She states she also has some pain in the left hip. She knows she has osteoarthritis but this feels different than before. She says it is hard to sit she stands mostly because of the amount of pain when she gets up and down. TRAVEL OUTSIDE OF THE [place] IN LAST 30 DAYS: No - HPI Patient complains to provider of: Pain, Hip, Pelvis Occurred: Other - Chronic pain with acute sedation about a month ago Onset/Duration: Gradual Quality of pain: Achy, Sharp, Throbbing Severity: Moderate Pain Level: 4 Skin Color: Normal Rotation of extremity: None Pain with palpation of the pelvis: Yes Associated Symptoms: None Other injuries: Back, RLE - Related Data Allergies/Adverse Reactions: morphine Adverse Reaction (Verified 10/17/19 18:37) Past Medical History - General Information source: Patient - Social History Smoking Status: Current Every Day Smoker Cigarette use (# per day): Yes - Half pack a day Smoking Education Provided: Yes Frequency of alcohol use: None Drug Abuse: None Lives with: Family Family History: Reviewed & Not Pertinent Patient has suicidal ideation: No Patient has homicidal ideation: No - Past Medical History Cardiac Medical History: Reports: Hx Hypercholesterolemia, Hx Hypertension Pulmonary Medical History: Reports: None EENT Medical History: Reports: None Neurological Medical History: Reports: None Endocrine Medical History: Reports: Hx Diabetes Mellitus Type 2 - Diet controlled Renal/ Medical History: Denies: Hx Peritoneal Dialysis Malignancy Medical History: Reports: None GI Medical History: Reports: None Musculoskeletal Medical History: Reports Hx Arthritis, Reports Hx Fibromyalgia, Reports Hx Musculoskeletal Trauma Skin Medical History: Reports None Psychiatric Medical History: Reports: None Traumatic Medical History: Reports: Hx Fractures - Wrist Infectious Medical History: Reports: None Past Surgical History: Reports: Hx Section, Hx Hysterectomy, Hx Orthopedic Surgery - R wrist, Other - Cataracts Review of Systems - Review of Systems Constitutional: No symptoms reported EENT: No symptoms reported Cardiovascular: No symptoms reported Respiratory: No symptoms reported Gastrointestinal: No symptoms reported Genitourinary: No symptoms reported Female Genitourinary: No symptoms reported Musculoskeletal: Back pain, Other - Hip pain Skin: No symptoms reported Hematologic/Lymphatic: No symptoms reported Neurological/Psychological: No symptoms reported -: Yes All other systems reviewed and negative Physical Exam - Vital signs Vitals: Temp Pulse Resp BP Pulse Ox 98 F 85 16 114/63 96 12/09/19 09:25 12/09/19 09:25 12/09/19 09:25 12/09/19 09:25 12/09/19 09:25 Interpretation: Normal - General General appearance: Appears well, Alert - HEENT Head: Normocephalic, Atraumatic Eyes: Normal Pupils: PERRL - Respiratory Respiratory status: No respiratory distress Chest status: Nontender Breath sounds: Normal Chest palpation: Normal - Cardiovascular Rhythm: Regular Heart sounds: Normal auscultation Murmur: No - Abdominal Inspection: Normal Distension: No distension Bowel sounds: Normal Tenderness: Nontender Organomegaly: No organomegaly - Back Back: Normal, Tender Notes: Right hip and pelvis - Extremities General upper extremity: Normal inspection, Nontender, Normal color, Normal ROM, Normal temperature General lower extremity: Normal inspection, Nontender, Normal color, Normal ROM, Normal temperature, Normal weight bearing. No: Deirdre's sign - Neurological Neuro grossly intact: Yes Cognition: Normal Orientation: AAOx4 [place] Coma Scale Eye Opening: Spontaneous Shiva Coma Scale Verbal: Oriented Shiva Coma Scale Motor: Obeys Commands Shiva Coma Scale Total: 15 Speech: Normal Motor strength normal: LUE, RUE, LLE, RLE Sensory: Normal - Psychological Associated symptoms: Normal affect, Normal mood - Skin Skin Temperature: Warm Skin Moisture: Dry Skin Color: Normal Course - Vital Signs Vital signs: Temp Pulse Resp BP Pulse Ox 98 F 85 16 114/63 96 12/09/19 09:25 12/09/19 09:25 12/09/19 09:25 12/09/19 09:25 12/09/19 09:25 Discharge - Discharge Clinical Impression: Arthritis Chronic pain Qualifiers: Chronic pain type: chronic pain syndrome Qualified Code(s): G89.4 - Chronic pain syndrome Condition: Stable Disposition: HOME, SELF-CARE Additional Instructions: Chronic Pain Control Stress, inactivity, and depression make pain more severe regardless of the cause of the pain. Stress and poor physical condition can cause pain such as headaches and backache. Relaxation: Rest in a quiet place with your eyes closed for 20 minutes twice daily. Concentrate on a pleasant image, or simply "feel" your breathing. Clear your mind. Stress management: Deal with your "stressors." Either take action, or eliminate the stressor from your life. Don't let things hang over you. Accept those things you can't change. Nutrition: Eat small, balanced meals -- don't skip, don't overeat. Meals should be high-carbohydrate, low-sugar, low-fat. Exercise: Exercise helps painful conditions and eases stress. Get 30 minutes of moderate exercise, five days a week. Do an activity that does not flare your pain. Precautions: Pain which continues to disrupt daily activities, or which changes in nature, requires a medical evaluation. Pain Clinic referral is available. We do not manage chronic pain in the Emergency Department. We will try to appropriately help you through an acute flare of your chronic painful condition, but for on-going chronic pain that does not improve, you will need to see your private doctor or painter set. We do not provide repeated medication management of chronic painful conditions. If you wish, we can provide the name of local pain management physicians. LOW BACK PAIN: Three out of every four people will have an episode of disabling back pain during their lifetime. Most commonly the pain is due to straining of the muscles and ligaments in the low back. Usual treatment includes: (1) Rest on a firm surface. Avoid lying on your stomach. (2) Ice pack the painful area. After a few days, gentle heat may be used intermittently to relax the area, or ice packs can be continued. (3) Medication may be needed -- muscle relaxers and antiinflammatory medicines are commonly used. (4) As the back improves, exercises are prescribed to strengthen the back and abdominal muscles. Your doctor will advise you on the proper care for your back at each stage in your recovery. You may be better in a few days -- or healing may take several weeks. If new symptoms of a "herniated disc" (radiation of pain, numbness, or tingling down the back of the leg or weakness in the leg) occur, you should be re-examined. Further testing may be necessary. Arthritis Your symptoms are due to arthritis. Arthritis is an inflammation of the joints. There are many types -- osteoarthritis (due to "wear and tear"), auto- immmune arthritis (such as rheumatoid, lupus, Mallory's, and others), and crystal-induced arthritis (such as gout and pseudogout). The physician's examination, combined with laboratory tests, will determine the cause of your arthritis. All types of arthritis are treated with antiinflammatory medications. Other medication may be required for special types of arthritis, or if your problem does not respond to the antiinflammatory medicine. Local warmth may be helpful. Move the involved joints through the full range of motion daily. Mild exercise is usually still possible for most persons with arthritis (ask your physician). Swimming provides good exercise without damaging the joints. Contact the physician if you are worsening in any way. ICE PACKS: Apply ice packs frequently against the painful area. Many different schedules are recommended, such as "20 minutes on, 20 minutes off" or "one hour ice, two hours rest." If you need to work, you may need to go longer between ice treatments. You should plan to have the area ice packed AT LEAST one fourth of the time. The ice should be applied over the wrap, tape, or splint, or over a layer of cloth -- not directly against the skin. Some ice bags have a built-in cloth and can be put directly on the skin. WARM PACKS: After approximately two days, apply gentle heat (such as a heating pad or hot water bottle) for about 20 to 30 minutes about every two hours -- at least four times daily. Warmth and elevation will help you make a more rapid recovery, and will ease the pain considerably. Do not use HOT heat, and never apply heat for longer than 30 minutes. The continuous heat can invisibly damage skin and muscles -- even when no burn is seen on the surface. Damaged muscles can make you MORE sore. Stretching Exercises for the Back The physician has recommended that you begin stretching exercises for your back. These are often used even while the back is painful. However, you should notify the physician if the activities seem to increase your pain. PELVIC TILT: Lie flat on your back with knees bent. Tighten your stomach and buttock muscles so it flattens your lower back against the floor. Hold 10 seconds. Repeat 10 times, twice daily. KNEE RAISE: Lying on the back with knees bent, raise one knee to your chest, then the other. Hold both knees against the chest 10 seconds, then lower one knee at a time. Repeat 10 times, twice daily. PARTIAL TRUNK RAISE: Lie face down, arms at your sides. Keeping your waist on the floor, use your arms raise your chest up. Support yourself on your elbows for 30 seconds. Repeat twice daily, increasing the time to two minutes as you recover. Toradol Injection You have been given an injection of ketorolac tromethamine (Toradol). This is an excellent, safe drug for pain control. It also has potent antiinflammatory action. You should have significant pain relief within about one hour. Toradol is not addicting and is non-sedating. It does not interfere with driving or work. Call or return if you develop itching, hives, shortness of breath, or rash. STEROID MEDICATION: You have been given an injection of medicine of the cortisone/steroid class. This medication is used to control inflammation or allergy. It is often continued as a pill for a short period of time, until the acute process subsides. There are usually no side effects from short-term use of cortisone-like medications. Some persons feel an increased sense of well-being and are not sleepy at bedtime. Long-term use of cortisone medications is best avoided, unless required for a severe condition. If your condition does not remit, or relapses after the course of corticosteroid medication, you should consult your physician. FOLLOW-UP CARE: If you have been referred to a physician for follow-up care, call the physicians office for an appointment as you were instructed or within the next two days. If you experience worsening or a significant change in your symptoms, notify the physician immediately or return to the Emergency Department at any time for re-evaluation. Forms: Smoking Cessation Education, Return to Work Referrals: [facility] [Provider Group] - Follow up as needed
[2019-12-09] MEDS ORDERED: KETOROLAC TROMETHAMINE INJ/PF 30 MG/1 ML SDV IM ONE (09:44)
[2019-12-09] MEDS ORDERED: DEXAMETHASONE SOD PHOS INJ 10 MG/1 ML VIAL IM ONE (09:44)
--- NOTE | 2019-12-09 10:20 | RADIOLOGY REPORT (SQ) ---
EXAM DESCRIPTION: HIP RIGHT AP/LATERAL COMPLETED DATE/TIME: 12/09/2019 9:53 am REASON FOR STUDY: Fell with history of chronic pain COMPARISON: None. NUMBER OF VIEWS: Two views. TECHNIQUE: AP pelvis and additional frog-leg view of the right hip. LIMITATIONS: None. FINDINGS: MINERALIZATION: Normal. RIGHT HIP: No fracture or dislocation. No worrisome bone lesions. LEFT HIP: No fracture or dislocation. No worrisome bone lesions. PUBIS AND ISCHIUM: No fracture. PELVIS: No fracture. SACRUM: No fracture or dislocation. No worrisome bone lesions. LOWER LUMBAR SPINE: No fracture or dislocation. No worrisome bone lesions. No significant disc disea se. SOFT TISSUES: No findings. OTHER: No other significant finding. IMPRESSION: NEGATIVE STUDY OF THE RIGHT HIP. NO RADIOGRAPHIC EVIDENCE OF ACUTE INJURY. TECHNICAL DOCUMENTATION: JOB ID: [id number] 2010 [employer]- All Rights Reserved Reading location - IP/workstation name: [email or web address]
--- NOTE | 2019-12-09 10:20 | RADIOLOGY REPORT (SQ) ---
EXAM DESCRIPTION: L SPINE WHOLE COMPLETED DATE/TIME: 12/09/2019 9:53 am REASON FOR STUDY: Fell with history of chronic pain COMPARISON: None. NUMBER OF VIEWS: Five views including obliques. TECHNIQUE: AP, lateral, oblique, and sacral radiographic images acquired of the lumbar spine. LIMITATIONS: None. FINDINGS: MINERALIZATION: Normal. SEGMENTATION: Normal. No transitional anatomy. ALIGNMENT: Normal. VERTEBRAE: Maintained height. No fracture or worrisome bone lesion. DISCS: Preserved height. No significant osteophytes or end plate irregularity. POSTERIOR ELEMENTS: No pars defects. Mild facet arthritis. HARDWARE: Hernia coils. PARASPINAL SOFT TISSUES: Normal. PELVIS: Intact as visualized. No fractures or worrisome bone lesions. SI joints intact. OTHER: No other significant finding. IMPRESSION: Mild facet arthritis. No acute findings. TECHNICAL DOCUMENTATION: JOB ID: [id number] 2010 [employer]- All Rights Reserved Reading location - IP/workstation name: [email or web address]
[2019-12-09 11:05] VITALS: BP 118/82
== END 2019-12-09 11:03 | disposition home or self-care (01) ==
LOC: ER 09:14
DX: G89.4 Chronic pain syndrome (principal); M19.90 Unspecified osteoarthritis, unspecified site; M54.9 Dorsalgia, unspecified; M25.551 Pain in right hip; W19.XXXA Unspecified fall, initial encounter; F17.210 Nicotine dependence, cigarettes, uncomplicated; Z90.710 Acquired absence of both cervix and uterus; E78.00 Pure hypercholesterolemia, unspecified; I10 Essential (primary) hypertension
CPT/HCPCS: 99283; 96372; 82962; 73502; 72110; J1885; J1100

== ENCOUNTER → 2020-02-22 | Outpatient (CLI) | payer MEDICARE, MEDICAID | LOC: RAD 13:41 | PROVIDERS: ATTEND Physician Assistant | DX: M25.551 Pain in right hip (principal); Z53.09 Procedure and treatment not carried out because of other contraindication; F40.240 Claustrophobia ==

== ENCOUNTER 2020-03-12 12:05 | Emergency (ER) | payer MEDICARE, MEDICAID ==
[2020-03-12] MEDS ORDERED: HYDROCODONE/ACETAMINOPHEN 5-325 MG TABLET PO ONE (13:54)
[2020-03-12] MEDS ORDERED: DIPH/PERTUSS(ACELL)/TETANUS VAC/PF 0.5 ML SYR (>=10YO) IM ONE (13:54)
--- NOTE | 2020-03-12 13:55 | ER Document Report ---
HPI - HPI Patient complains to provider of: Facial injury Time Seen by Provider: 03/12/20 13:46 Onset: This morning Onset/Duration: Sudden Quality of pain: Achy Pain Level: 4 Context: Patient states that she was at a gas station and a wooden framed plexiglass barrier fell hitting her in the face. Patient complains of right lower eyelid tenderness. There was no loss of consciousness and no nausea or vomiting. Patient states she is legally blind and is supposed to wear glasses although does not have any presently. Associated Symptoms: Other - Facial pain, right eyelid pain Exacerbated by: Denies Relieved by: Denies Similar symptoms previously: No Recently seen / treated by doctor: No - ROS ROS below otherwise negative: Yes Systems Reviewed and Negative: Yes All other systems reviewed and negative - CONSTITUTIONAL Constitutional: DENIES: Fever, Chills - EENT EENT: REPORTS: Eye problems - NEURO Neurology: REPORTS: Headache. DENIES: Dizzinesss / Vertigo - GASTROINTESTINAL Gastrointestinal: DENIES: Nausea, Patient vomiting - REPRODUCTIVE Reproductive: DENIES: : - DERM Skin Color: Normal Skin Problems: Abrasion - Right cheek Past Medical History - General Information source: Patient - Social History Smoking Status: Current Every Day Smoker Chew tobacco use (# tins/day): No Frequency of alcohol use: None Drug Abuse: None Occupation: None Lives with: Family Family History: Reviewed & Not Pertinent Patient has homicidal ideation: No - Past Medical History Cardiac Medical History: Reports: Hx Hypercholesterolemia, Hx Hypertension EENT Medical History: Reports: Eyes - Retinal pigment Endocrine Medical History: Reports: Hx Diabetes Mellitus Type 2 - Diet controlled Renal/ Medical History: Denies: Hx Peritoneal Dialysis Musculoskeletal Medical History: Reports Hx Arthritis, Reports Hx Fibromyalgia, Reports Hx Musculoskeletal Trauma Traumatic Medical History: Reports: Hx Fractures - Wrist Past Surgical History: Reports: Hx Section, Hx Hysterectomy, Hx Orthopedic Surgery - R wrist, Other - Cataracts Vertical Provider Document - CONSTITUTIONAL Agree With Documented VS: Yes Exam Limitations: No Limitations General Appearance: WD/WN, No Apparent Distress - INFECTION CONTROL TRAVEL OUTSIDE OF THE [place] IN LAST 30 DAYS: No - HEENT HEENT: Normocephalic, PERRLA. negative: Tympanic Membrane Red, Tympanic Membrane Bulging Notes: Patient with right infraorbital tenderness that extends across bridge of her nose, extraocular movements intact, small abrasion to right cheek. No fluorescein uptake, no corneal abrasion, ulcer, foreign body or dendrite - NECK Neck: Normal Inspection, Supple. negative: Lymphadenopathy-Left, Lymphadenopathy-Right - RESPIRATORY Respiratory: Breath Sounds Normal, No Respiratory Distress - CARDIOVASCULAR Cardiovascular: Regular Rate, Regular Rhythm - BACK Back: Normal Inspection - MUSCULOSKELETAL/EXTREMETIES Musculoskeletal/Extremeties: ARRON FROM - NEURO Level of Consciousness: Awake, Alert, Appropriate Motor/Sensory: No Motor Deficit - DERM Integumentary: Warm, Dry Notes: Abrasion to the right cheek Course - Re-evaluation Re-evalutation: 03/12/20 14:46 No acute fracture noted on imaging study, patient unable to complete visual acuity although states that she is legally blind and did not bring her glasses. Patient encouraged to follow-up with an pinsetter mechanic automatic for further evaluation. No corneal abrasion, ulcer, foreign body or dendritic lesion. - Vital Signs Vital signs: Temp Pulse Resp BP Pulse Ox 98.2 F 72 16 126/73 H 97 03/12/20 13:43 03/12/20 12:09 03/12/20 12:09 03/12/20 12:09 03/12/20 12:09 - Diagnostic Test Radiology reviewed: Reports reviewed Discharge - Discharge Clinical Impression: Facial abrasion Qualifiers: Encounter type: initial encounter Qualified Code(s): S00.81XA - Abrasion of other part of head, initial encounter Eyelid pain Qualifiers: Laterality: right Qualified Code(s): H02.89 - Other specified disorders of eyelid Facial injury Qualifiers: Encounter type: initial encounter Qualified Code(s): S09.93XA - Unspecified injury of face, initial encounter Condition: Stable Disposition: HOME, SELF-CARE Instructions: Abrasions of the Face ([facility]), Head Injury Precautions ([facility]) Additional Instructions: Return immediately for any new or worsening symptoms Followup with your primary care provider, call tomorrow to make a followup appointment Follow-up with an pinsetter mechanic automatic, call today to make a follow-up appointment Prescriptions: Erythromycin Base [E-Mycin 0.5% Oph Ointment 3.5 gm] 1 applic RT_EYE QID #1 tube Hydrocodone/Acetaminophen [Carman 5-325 mg Tablet] 1 tab PO Q6 PRN #8 tablet PRN Reason: Referrals: NATHANAEL,MAINOR S, PA-C [Primary Care Provider] - Follow up as needed [facility] [Provider Group] - Follow up tomorrow
--- NOTE | 2020-03-12 14:15 | RADIOLOGY REPORT (SQ) ---
EXAM DESCRIPTION: CT FACIAL AREA WITHOUT IMAGES COMPLETED DATE/TIME: 03/12/2020 2:05 pm REASON FOR STUDY: facial injury COMPARISON: None. TECHNIQUE: Noncontrasted images through the facial bones and orbits windowed for bone and soft tissu e. Additional coronal and sagittal reconstructed images reviewed. All images stored on PACS. All CT scanners at this facility use dose modulation, iterative reconstruction, and/or weight based d osing when appropriate to reduce radiation dose to as low as reasonably achievable (ALARA). [facility]: Dose Right [facility]: CareDose [facility]: Dose Right [facility]: Teradose 4D [facility]: Perfect Memory RADIATION DOSE: CT Rad equipment meets quality standard of care and radiation dose reduction techniq ues were employed. CTDIvol: 30.4 mGy. DLP: 534 mGy-cm. mGy. LIMITATIONS: None. FINDINGS: FACIAL BONES: No fracture or bone lesion. ORBITS: Intact. No fracture. Symmetric intact globes and retroorbital soft tissues. PARANASAL SINUSES: Clear. SOFT TISSUES: No mass or edema. INFERIOR BRAIN: Limited view. No acute findings. OTHER: No other significant finding. IMPRESSION: NO ACUTE FINDINGS. TECHNICAL DOCUMENTATION: JOB ID: [id number] Quality ID # [id number]: Final reports with documentation of one or more dose reduction techniques (e.g., Au tomated exposure control, adjustment of the mA and/or kV according to patient size, use of iterative reconstruction technique) 2010 [employer]- All Rights Reserved Reading location - IP/workstation name: [email or web address]
[2020-03-12 15:06] VITALS: BP 128/74
== END 2020-03-12 15:05 | disposition home or self-care (01) ==
LOC: ER 12:05
DX: S00.81XA Abrasion of other part of head, initial encounter (principal); R51 Headache; W20.8XXA Other cause of strike by thrown, projected or falling object, initial encounter; Y92.524 Gas station as the place of occurrence of the external cause; H54.8 Legal blindness, as defined in USA; F17.200 Nicotine dependence, unspecified, uncomplicated; I10 Essential (primary) hypertension; E11.9 Type 2 diabetes mellitus without complications; Z23 Encounter for immunization
CPT/HCPCS: 99283; 90471; 70486; 90715; A9270

== ENCOUNTER → 2020-03-30 | Outpatient (CLI) | payer MEDICARE, MEDICAID ==
--- NOTE | 2020-03-30 13:08 | RADIOLOGY REPORT (SQ) ---
EXAM DESCRIPTION: MRI RT LOWER JOINT WITHOUT IMAGES COMPLETED DATE/TIME: 03/30/2020 11:05 am REASON FOR STUDY: (M25.551)PAIN IN RIGHT HIP M25.551 PAIN IN RIGHT HIP COMPARISON: None. TECHNIQUE: Righthip images acquired and stored on PACS. Multiplanar images to include fat sensitive sequences as T1, fluid sensitive sequences as T2/STIR and gradient echo sequences. Large FOV fat and fluid sensitive sequences include pelvis and opposite hip. LIMITATIONS: Habitus, inhomogeneous T2 fat suppression mildly limiting. FINDINGS: BONE CORTEX AND MARROW: Marrow edema along the lumbosacral junction involves the upper sac rum on the right. There appears to be some fluid in the facets here. Please see coronal series 5 im age 20/26 and adjacent slices. SI joints look intact. Presumably degenerative. Limited assessment. RIGHT HIP: No significant effusion or bursitis. No AVN. No fracture or worrisome bone lesion. No regional mus blake tear. No secondary signs of labral tear. No significant chondral loss or subchondral cysts or e rosions detected. OPPOSITE HIP: Limited evaluation. No worrisome bone lesions. No significant effusion. PELVIC SOFT TISSUES: No masses or adenopathy. SCIATIC NERVE: Identified, without masses or abnormal signal. OTHER: No other significant finding. IMPRESSION: 1. Right hip looks generally intact. 2. Lumbosacral junction spondylosis is suggested, incompletely assessed. See above. TECHNICAL DOCUMENTATION: JOB ID: [id number] 2010 [employer]- All Rights Reserved Reading location - IP/workstation name: [email or web address]
== END ==
LOC: RAD 10:12
PROVIDERS: ATTEND Physician Assistant
DX: M25.551 Pain in right hip (principal)

== ENCOUNTER → 2020-06-27 | Outpatient (CLI) | payer MEDICARE, MEDICAID ==
--- NOTE | 2020-06-27 14:58 | RADIOLOGY REPORT (SQ) ---
EXAM DESCRIPTION: MRI LUMBAR SPINE WITHOUT IMAGES COMPLETED DATE/TIME: 06/27/2020 2:39 pm REASON FOR STUDY: M54.16 RADICULOPATHY, LUMBAR REGION M54.16 RADICULOPATHY, LUMBAR REGION COMPARISON: None. TECHNIQUE: Sagittal and Axial imaging includes T1, T2, STIR and gradient echo sequences. Coronal T2/ HASTE imaging. LIMITATIONS: Motion. FINDINGS: VISUALIZED UPPER ABDOMEN: Limited evaluation. No acute or suspicious findings suggested. SEGMENTATION: No transitional anatomy. The lowest well-developed disc space is labeled L5-S1. ALIGNMENT: Anatomic. VERTEBRAE: Intact. BONE MARROW: Normal. No marrow replacement or reactive changes. DISC SIGNAL: Desiccation L5-S1. POSTERIOR ELEMENTS: Generally intact. No pars defect evident. HARDWARE: None in the spine. CORD AND CONUS: Normal in size and signal intensity. Conus at the appropriate level. SOFT TISSUES: No aortic aneurysm seen. No bulky retroperitoneal adenopathy or mass. No paraspinal mas s or fluid. L1-L2: No significant spinal stenosis or exit foraminal stenosis. L2-L3: No significant spinal stenosis or exit foraminal stenosis. L3-L4: No significant spinal stenosis or exit foraminal stenosis. L4-L5: No significant spinal stenosis or exit foraminal stenosis. L5-S1: Central annular fissure. Facet arthropathy. No significant stenosis. LOWER THORACIC: Incompletely imaged. No stenosis seen. SACRUM: Visualized upper sacrum intact. OTHER: No other significant findings. IMPRESSION: Facet arthropathy. Annular fissure L5-S1. TECHNICAL DOCUMENTATION: JOB ID: [id number] 2010 [employer]- All Rights Reserved Reading location - IP/workstation name: [email or web address]
== END ==
LOC: RAD 13:49
PROVIDERS: ATTEND Physician Assistant
DX: M54.16 Radiculopathy, lumbar region (principal)
CPT/HCPCS: 72148